=== PATIENT | female | born 1985 | race Caucasian/White ===

== ENCOUNTER 2016-10-17 19:19 | Emergency (ER) | payer OTHER ==
[~2016-10-17] VITALS: Ht 175.3 cm; Wt 103.9 kg
[~2016-10-17 19:19] MED LIST: ACCU-CHEK COMB1 EACH SQ; APRI1 EACH PO; BIOTIN 5000MCG PO; BLISOVI FE 1.51 EACH PO; CELEXA20 MG PO; CIPRO500 MG PO; EXCEDRIN MIGRA1 EAC3 PO; FLAGYL500 MG PO; HUMALOG (UNIT)1 UNIT SC; HUMALOG100 UNIT/1 SC; INSULIN PUMP SCCONT; INSULIN PUMP1 EACH MC; LEVAQUIN500 MG PO; LEVETIRACETAM500 MG PO; MACROBID100 MG PO; Motrin PO; PRENATAL1 EACH PO; PRINIVIL5 MG PO; Percocet 5/325,Endoc PO; THERAGRAN1 TABLET PO; TRAMADOL HCL50 MG PO; TRI-SPRINTEC1 EACH PO; VICODIN 5-3001 EACH PO; XANAX0.25 MG PO; XANAX0.5 MG PO
[2016-10-17 21:00] LABS: HEMATOCRIT 39.6 % (36.0-46.0); MCH 28.1 PG (29.0-34.0); MCHC 32.3 G/DL (30.0-36.0); MEAN PLAT.VOLUME 9.6 uM^3 (9.5-12.4); PLATELET COUNT 259 K/uL (156-360); RBC DIS.WIDTH-CV 14.2 % (11.8-14.6); RBC DIS.WIDTH-SD 44.2 % (39-53); RED BLOOD COUNT 4.55 M/uL (3.80-5.20); WHITE BLOOD COUNT 12.1 K/uL (4.1-10.2)
[2016-10-17 21:08] LABS: CHLORIDE 105 mEq/L (99-109); POTASSIUM 3.9 mEq/L (3.7-5.4); SODIUM 139 mEq/L (136-147)
[2016-10-17 21:10] LABS: GLUCOSE 64 mg/dL (70-99)
[2016-10-17 21:11] LABS: ANION GAP 9 MEQ/L (2-14)
[2016-10-17 21:14] LABS: GFR ESTIMATE (CALCULATED) > 59 mL/min/; UREA NITROGEN (BUN) 24 mg/dL (9-23)
[2016-10-17 21:24] LABS: QUANTITATIVE HCG < 4.0 MIU/ML
[2016-10-18] MEDS ORDERED: FLEXERIL5 MG PO (00:03)
[2016-10-18] MEDS ORDERED: TRAMADOL HCL50 MG PO (00:03)
[2016-10-18 00:07] VITALS: BP 129/93
== END 2016-10-18 00:11 | disposition home or self-care (01) ==
LOC: EME 19:19
PROVIDERS: Physician Assistant
DX: R51 Headache (principal); S16.1XXA Strain of muscle, fascia and tendon at neck level, initial encounter; M79.1 Myalgia; V49.40XA Driver injured in collision with unspecified motor vehicles in traffic accident, initial encounter; R42 Dizziness and giddiness; R11.0 Nausea
CPT/HCPCS: 70496; 70498; 80048; 84702; 85027; 99281; 99285; J3360; J7030

== ENCOUNTER 2017-10-23 19:50 | Emergency (ER) | payer OTHER ==
[~2017-10-23] VITALS: Ht 175.3 cm; Wt 108.3 kg
[~2017-10-23 19:50] MED LIST changes: +FLEXERIL5 MG PO
[2017-10-23 21:10] LABS: HEMATOCRIT 40.9 % (36.0-46.0); HEMOGLOBIN 13.6 G/DL (11.9-15.5); MCH 29.5 PG (29.0-34.0); MCHC 33.3 G/DL (30.0-36.0); MCV 88.7 FL (83-99); PLATELET COUNT 224 K/uL (156-360); RBC DIS.WIDTH-CV 12.7 % (11.8-14.6); RBC DIS.WIDTH-SD 41.6 % (39-53); RED BLOOD COUNT 4.61 M/uL (3.80-5.20); WHITE BLOOD COUNT 9.2 K/uL (4.1-10.2)
[2017-10-23 21:11] LABS: APPEARANCE SL.HAZY ((CLEAR)); BILIRUBIN NEGATIVE; BLOOD NEGATIVE; COLOR YELLOW ((YELLOW)); GLUCOSE (STRIP) 150; KETONES 5; LEUKOCYTES NEGATIVE; NITRITE NEGATIVE; PROTEIN (STRIP) NEGATIVE; SPECIFIC GRAVITY 1.027 (1.000-1.030); UROBILINOGEN 0.2 MG/DL (0.2-1.0)
[2017-10-23 21:36] LABS: BACTERIA RARE /HPF; EPITHELIAL CELLS 2+ /HPF; MUCUS TRACE /LPF; RED BLOOD CELLS 0-5 /HPF (0-5); UCUL ADDED? NO; WHITE BLOOD CELLS 0-5 /HPF (0-5)
[2017-10-23 21:38] LABS: ALBUMIN 4.2 g/dL (3.2-4.8); CHLORIDE 108 mEq/L (99-109); POTASSIUM 3.4 mEq/L (3.7-5.4); SODIUM 140 mEq/L (136-147)
[2017-10-23 21:41] LABS: GLUCOSE 133 mg/dL (70-99); TOTAL PROTEIN 7.4 g/dL (6.4-8.3)
[2017-10-23 21:43] LABS: TOTAL BILIRUBIN 0.4 mg/dL (0.0-1.0)
[2017-10-23 21:44] LABS: ALKALINE PHOSPHATASE 95 IU/L (3-129); CREATININE 0.8 mg/dL (0.6-1.3); GFR ESTIMATE (CALCULATED) > 59 mL/min/
[2017-10-23 21:45] LABS: TROP-I INTERPRETATION NEGATIVE; TROPONIN-I < 0.01 ng/mL (0.0-0.30); UREA NITROGEN (BUN) 20 mg/dL (9-23)
[2017-10-23 21:46] LABS: AST (GOT) 17 IU/L (2-34)
[2017-10-23 21:47] LABS: ALT (GPT) 18 IU/L (3-49)
[2017-10-23 21:48] LABS: LIPASE 7 U/L (1.0-51.0)
[2017-10-23 21:54] LABS: QUANTITATIVE HCG < 4.0 MIU/ML
[2017-10-23] MEDS ORDERED: OMEPRAZOLE40 M1 PO (23:40)
[2017-10-23 23:47] VITALS: BP 133/94
== END 2017-10-23 23:59 | disposition home or self-care (01) ==
LOC: EME 19:50
PROVIDERS: Physician Assistant
DX: K21.9 Gastro-esophageal reflux disease without esophagitis (principal); Z90.49 Acquired absence of other specified parts of digestive tract
CPT/HCPCS: 80053; 81003; 82948; 83690; 84484; 84702; 85027; 93005; 99281; 99285